=== PATIENT | male | born 1985 | race Caucasian/White ===

== ENCOUNTER 2017-07-23 22:40 | Emergency (ER) | payer OTHER ==
[2017-07-23] MEDS ORDERED: AMOXIL/CLAVULANATE 400/5 ML PDR PO ONE (23:15)
[2017-07-23] MEDS ORDERED: AUGMENTIN(FRIDGE) 400 MG/5 ML ONE (23:18)
[2017-07-23] MEDS ORDERED: TDAP VACCINE 0.5 ML SUS IM ONE (23:18)
[2017-07-23 23:53] VITALS: BP 133/90; PULSE 97; RESP 16; TEMP 98.3; O2SAT 97
== END 2017-07-23 23:42 | disposition home or self-care (01) | DRG 605 ==
LOC: ED 22:40
DX: S51.851A Open bite of right forearm, initial encounter (principal); S41.051A Open bite of right shoulder, initial encounter; W54.0XXA Bitten by dog, initial encounter
CPT/HCPCS: 90715; 99283